=== PATIENT | male | born 1980 | race Caucasian/White ===

== ENCOUNTER 2023-12-01 20:47 | Emergency (ER) | payer SELFPAY ==
[2023-12-01] MEDS ORDERED: Naproxen 500 MG TAB ONE (21:06)
[2023-12-01] MEDS ORDERED: Clindamycin 150 MG CAP ONE (21:06)
== END 2023-12-01 21:19 | disposition home or self-care (01) ==
LOC: MADERS 20:47
DX: L03.116 Cellulitis of left lower limb (principal); I10 Essential (primary) hypertension; Z87.891 Personal history of nicotine dependence; Z79.899 Other long term (current) drug therapy
CPT/HCPCS: 99283